=== PATIENT | female | born 1945 | race African-American/Black ===

== ENCOUNTER 2017-12-01 08:25 | Outpatient (CLI) | payer MEDICARE, BC ==
--- NOTE | 2017-12-02 08:50 | MRI ---
MRI [facility]A WITH AND WITHOUT CONTRAST: CLINICAL HISTORY: Vertigo, dizziness, 72-year-old female. FINDINGS: Ventricular size is appropriate in volume. There is minimal chronic microvascular ischemic disease o f the cerebral white matter. No evidence of intracranial hemorrhagic susceptibility, or acute territ orial infarction. The imaged skull base flow voids are patent. There is a partially empty sella, no t atypical for patient's age. There is no evidence of an enhancing intraaxial mass. IMPRESSION: No significant intracranial abnormalities. POS: LYRIC
== END 2017-12-01 08:26 | disposition home or self-care (01) ==
LOC: SCSMRI 08:25
PROVIDERS: ATTEND Psychiatry & Neurology Neurology
DX: R42 Dizziness and giddiness (principal)
CPT/HCPCS: 70553; 82565

== ENCOUNTER 2018-09-18 09:13 | Outpatient (CLI) | payer MEDICARE, BC | END 2018-09-18 09:14 | disposition home or self-care (01) | LOC: BICMAMMO 09:13 | PROVIDERS: ATTEND Family Medicine | DX: Z12.31 Encounter for screening mammogram for malignant neoplasm of breast (principal); R92.1 Mammographic calcification found on diagnostic imaging of breast | CPT/HCPCS: 77063; 77067 ==

== ENCOUNTER 2019-10-22 09:45 | Outpatient (CLI) | payer MEDICARE, BC ==
--- NOTE | 2019-10-22 13:33 | MMO ---
Bilateral MAMMO Bilat Screen [facility]. CLINICAL HISTORY: Patient is 74 years old and is seen for screening. The patient has no family history of breast cancer. The patient has no personal history of cancer. The patient has a history of right Excisional Biopsy in - benign. VIEWS: The views performed were: bilateral craniocaudal with tomosynthesis and bilateral mediolateral oblique with tomosynthesis. FILMS COMPARED: The present examination has been compared to prior imaging studies performed at [facility] on 09/13/2016, 09/14/2017 and 09/18/2018, and at [facility] on 09/11/2015. This study has been interpreted with the assistance of computer-aided detection. MAMMOGRAM FINDINGS: The breasts are heterogeneously dense, which could obscure a lesion on mammography. There are no suspicious masses, suspicious calcifications, or new areas of architectural distortion. IMPRESSION: THERE IS NO MAMMOGRAPHIC EVIDENCE OF MALIGNANCY. A ROUTINE FOLLOW-UP MAMMOGRAM IN 1 YEAR IS RECOMMENDED. THE RESULTS OF THIS EXAM WERE SENT TO THE PATIENT. ACR BI-RADS Category 1 - Negative MAMMOGRAPHY NOTE: 1. A negative mammogram report should not delay a biopsy if a dominant of clinically suspicious mass is present. 2. Approximately 10% to 15% of breast cancers are not detected by mammography. 3. Adenosis and dense breasts may obscure an underlying neoplasm. Reported by: GATO WAY MD Electonically Signed: [id number]
== END 2019-10-22 09:46 | disposition home or self-care (01) ==
LOC: BICMAMMO 09:45
PROVIDERS: ATTEND Family Medicine
DX: Z12.31 Encounter for screening mammogram for malignant neoplasm of breast (principal)
CPT/HCPCS: 77063; 77067